=== PATIENT | female | born 1995 | race Two or more races ===

== ENCOUNTER 2018-06-25 23:26 | Emergency (ER) | payer SELFPAY ==
[2018-06-26 01:09] LABS: ABS Basophils 0 10^3/ul (0-0.2); ABS Eosinophils 0 10^3/ul (0-0.6); ABS Lymphocytes 0.8 10^3/ul (1.0-4.8); ABS Monocytes 0.1 10^3/ul (0-0.8); ABS Neutrophils 1.2 10^3/ul (1.5-7.7); ABS Nucleated RBC 0 10^3/ul; Eosinophil % 0.1 %; Hematocrit 32 % (33-41); Hemoglobin 10.6 g/dL (12.0-16.0); Mean Corpuscular HGB Conc 33 g/dL (31-36); Mean Corpuscular Hemoglobin 29 pg (27-31); Mean Corpuscular Volume 88 fL (80-97); Mean Platelet Volume 8.6 fL (7.4-10.4); Nucleated Red Blood Cells % 0; Platelet Count 213 10^3/uL (150-450); Red Blood Count 3.63 10^6 /uL (3.70-4.87); Red Cell Distribution Width 13 % (10.5-15); White Blood Count 2.1 10^3/uL (3.5-10.8)
[2018-06-26 01:10] LABS: ALT 50 U/L (7-52); AST 61 U/L (13-39); Albumin 3.8 g/dL (3.2-5.2); Albumin/Globulin Ratio 1.1 (1-3); Alkaline Phosphatase 56 U/L (34-104); Anion Gap 9 mmol/L (2-11); BUN/Creatinine Ratio 13.3 (8-20); Blood Urea Nitrogen 10 mg/dL (6-24); CO2 Carbon Dioxide 23 mmol/L (22-32); Calcium 8.3 mg/dL (8.6-10.3); Chloride 104 mmol/L (101-111); EGFR African American 116.9 (>60); EGFR Non-African American 96.6 (>60); Globulin 3.5 g/dL (2-4); Glucose 128 mg/dL (70-100); Sodium 136 mmol/L (135-145); Total Protein 7.3 g/dL (6.4-8.9)
[2018-06-26] MEDS ORDERED: NS 0.9% 1000 ML** 1,000 ML IV ONE (01:20)
[2018-06-26] MEDS ORDERED: Acetaminophen TAB* 325 MG PO ONE (01:20)
[2018-06-26] MEDS ORDERED: Iohexol 300* (CONTRAST) 10 ML SDV IV ONE (01:33)
--- NOTE | 2018-06-26 01:35 | ED ---
HPI Febrile Illness - HPI Summary HPI Summary: The patient is a 23 year old female who is presenting to the [facility] with a chief complaint of fever. The patient states that she has had [place] for the past 3 weeks. Her fever has reached 102 F at one point during the duration. Medication aside from ibuprofen has not been taken. Patient denies sore throat. Abd pain and [place] are reported. Abd pain is intermittent. Patient describes her ibuprofen usage as every 6 hours and she had increased from 400 mg to 600. Last dose of Advil was also stated to be taken at 2300. As per triage report, the patient reports of [place] on the right side. The symptoms are alleviated by nothing. Symptoms are aggravated by nothing. The pain is rated as 5/10 in severity. Patient also denies N/V. - History of Current Complaint Chief Complaint: EDFever Time Seen by Provider: 06/26/18 01:02 Hx Obtained From: Patient Onset/Duration: Started Weeks Ago - 3 weeks Timing: Constant Initial Severity: Moderate Current Severity: Moderate Pain Intensity: 5 Pain Scale Used: 0-10 Numeric Associated Signs and Symptoms: Headache, Other: - Abd pain (intermittent) - Allergy/Home Medications Allergies/Adverse Reactions: Allergies Allergy/AdvReac Type Severity Reaction Status Date / Time amoxicillin [From Augmentin] Allergy Swelling Verified 06/25/18 23:46 cefadroxil [From Duricef] Allergy Swelling Verified 06/25/18 23:46 clavulanic acid Allergy Swelling Verified 06/25/18 23:46 [From Augmentin] Penicillins Allergy Stomach Verified 06/25/18 23:44 Cramps Home Medications: Home Medications Ibuprofen TAB* [Motrin TAB* 600 MG] 600 mg PO Q6H PRN 06/25/18 [History Confirmed 06/25/18] PMH/Surg Hx/FS Hx/Imm Hx Endocrine/Hematology History: Denies: Hx Diabetes Cardiovascular History: Denies: Hx Hypertension History: Denies: Hx Renal Disease Sensory History: Denies: Hx Deafness Opthamlomology History: Denies: Hx Legally Blind EENT History: Denies: Hx Deafness Infectious Disease History: No Infectious Disease History: Reports: Traveled Outside the [place] in Last 30 Days - Family History Known Family History: Positive: Non-Contributory Family History: FHx Reviewed and noncontributory - Social History Occupation: Student Lives: Dormitory/Roommates Substance Use Type: Reports: None Hx Tobacco Use: No Review of Systems Positive: Fever - 102 F Eyes: Negative Negative: Sore Throat Cardiovascular: Negative Respiratory: Negative Positive: Abdominal Pain - intermittent. Negative: Vomiting, Nausea Genitourinary: Negative Musculoskeletal: Negative Skin: Negative Positive: Headache Psychological: Normal All Other Systems Reviewed And Are Negative: Yes Physical Exam - Summary Physical Exam Summary: VITAL SIGNS: Reviewed. GENERAL: Patient is a well-developed and nourished (FEMALE) who is lying comfortable in the stretcher. Patient is not in any acute respiratory distress. HEAD AND FACE: No signs of trauma. No ecchymosis, hematomas or skull depressions. No sinus tenderness. EYES: PERRLA, EOMI x 2, No injected conjunctiva, no nystagmus. EARS: Hearing grossly intact. Ear canals and tympanic membranes are within normal limits. MOUTH: Oropharynx within normal limits. NECK: Supple, trachea is midline, no adenopathy, no JVD, no carotid bruit, no c- spine tenderness, neck with full ROM. No meningeal signs. CHEST: Symmetric, no tenderness at palpation LUNGS: Clear to auscultation bilaterally. No wheezing or crackles. CVS: Regular rate and rhythm, S1 and S2 present, no murmurs or gallops appreciated. ABDOMEN: LEFT UPPER QUADRANT MILD TENDERNESS. No signs of distention. No rebound no guarding, and no masses palpated. Bowel sounds are normal. EXTREMITIES: FROM in all major joints, no edema, no cyanosis or clubbing. NEURO: Alert and oriented x 3. No acute neurological deficits. Speech is normal and follows commands. SKIN: Dry and warm Triage Information Reviewed: Yes Vital Signs On Initial Exam: Initial Vitals Temp Pulse Resp BP Pulse Ox 101.6 F 110 14 127/77 97 06/25/18 23:39 06/25/18 23:39 06/25/18 23:39 06/25/18 23:39 06/25/18 23:39 Vital Signs Reviewed: Yes Diagnostics - Vital Signs Vital Signs Temp Pulse Resp BP Pulse Ox 06/25/18 23:39 101.6 F 110 14 127/77 97 - Laboratory Lab Results: Lab Results 06/26/18 06/26/18 Range/Units 00:26 00:26 WBC 2.1 L (3.5-10.8) 10^3/uL RBC 3.63 L (3.70-4.87) 10^6 /uL Hgb 10.6 L (12.0-16.0) g/dL Hct 32 L (33-41) % MCV 88 (80-97) fL MCH 29 (27-31) pg MCHC 33 (31-36) g/dL RDW 13 (10.5-15) % Plt Count 213 (150-450) 10^3/uL MPV 8.6 (7.4-10.4) fL Neut % (Auto) 58.4 % Lymph % (Auto) 36.0 % [place] % (Auto) 5.2 % Eos % (Auto) 0.1 % Baso % (Auto) 0.3 % Absolute Neuts (auto) 1.2 L (1.5-7.7) 10^3/ul Absolute Lymphs (auto) 0.8 L (1.0-4.8) 10^3/ul Absolute Monos (auto) 0.1 (0-0.8) 10^3/ul Absolute Eos (auto) 0 (0-0.6) 10^3/ul Absolute Basos (auto) 0 (0-0.2) 10^3/ul Absolute Nucleated RBC 0 10^3/ul Nucleated RBC % 0 Sodium 136 (135-145) mmol/L Potassium 4.0 (3.5-5.0) mmol/L Chloride 104 (101-111) mmol/L Carbon Dioxide 23 (22-32) mmol/L Anion Gap 9 (2-11) mmol/L BUN 10 (6-24) mg/dL Creatinine 0.75 (0.51-0.95) mg/dL Est GFR ( Amer) 116.9 (>60) Est GFR (Non-Af Amer) 96.6 (>60) BUN/Creatinine Ratio 13.3 (8-20) Glucose 128 H (70-100) mg/dL Calcium 8.3 L (8.6-10.3) mg/dL Total Bilirubin 0.40 (0.2-1.0) mg/dL AST 61 H (13-39) U/L ALT 50 (7-52) U/L Alkaline Phosphatase 56 (34-104) U/L Total Protein 7.3 (6.4-8.9) g/dL Albumin 3.8 (3.2-5.2) g/dL Globulin 3.5 (2-4) g/dL Albumin/Globulin Ratio 1.1 (1-3) Result Diagrams: 06/26/18 00:26 06/26/18 00:26 Lab Statement: Any lab studies that have been ordered have been reviewed, and results considered in the medical decision making process. - CT Chest/Abd/Pel CT CT Interpretation Completed By: Radiologist Summary of CT Findings: CT Chest as per radiologist reveals negative CT Chest. No filtrates and no central pulmonary embolism is identified. The ED Physician has reviewed this radiology report. CT A/P as per radiologist reveals 1. Borderline hepatomegaly with no splenomegaly. 2. Slight pericholecystic fluid or wall edema along liver interface and slight periportal edema of the liver which is nonspecific but may be seen with hepatitis. 3.collapsed stomach with question of slight perigastric induration which may reflect gastritis. 4.Borderline periaortic retroperitoneal nodes which are nonspecific. The ED Physician has reviewed this radiology report. Course/Dx - Course Course Of Treatment: The patient is a 23 year old female who is presenting to the [facility] with a chief complaint of fever. We reviewed her blood work and lab results in the [facility]. CT Chest, and Ct A/P were done in the [facility]. Upon reviewing findings. Upon reviewing all the findings, there are no obvious reason for the patients fever. CT A/P is negative. The option was given to the family after discussion of the lab results and imaging results with the family, that they may either choose to admit the patient to the [facility] or be discharged home and follow up with infectious disease specialist today. The patient and her family agreed to the discharge plan and will follow up with Dr. Ambrose today. The patient will be discharged home with a dx of fever. - Diagnoses Provider Diagnoses: Fever Discharge - Sign-Out/Discharge Documenting (check all that apply): Patient Departure - Discharge Home Patient Received Moderate/Deep Sedation with Procedure: No - Discharge Plan Condition: Stable Disposition: HOME Patient Education Materials: Fever in Adults (ED) Referrals: Ivory Gallego, [facility] [Primary Care Provider] - Isauro ROSADO,Peter Cervantes [Medical Doctor] - Additional Instructions: FOLLOW UP WITH DR. Ambrose Today (Infectious Disease specialist). RETURN TO THE EMERGENCY DEPARTMENT FOR CHANGING OR WORSENING SYMPTOMS. - Attestation Statements Document Initiated by Scribe: Yes Documenting Scribe: Jeffery Billings Provider For Whom Scribe is Documenting (Include Credential): Dr. Adrienne Malagon Scribe Attestation: IJeffery, scribed for Dr. Adrienne Malagon on 06/26/18 at 0513. Status of Scribe Document: Ready
[2018-06-26 01:55] LABS: C Reactive Protein 12.11 mg/L (<8.01)
[2018-06-26 02:03] LABS: HCG Pregnancy < 0.60 mIU/mL
[2018-06-26 03:18] LABS: Rapid Strep Molecular Negative (Negative)
[2018-06-26 04:01] LABS: Urine Appearance Clear; Urine Bilirubin Negative (Negative); Urine Blood Negative (Negative); Urine Color Straw; Urine Glucose Negative (Negative); Urine Ketones Negative (Negative); Urine Nitrite Negative (Negative); Urine Protein Negative (Negative); Urine Specific Gravity 1.034 (1.010-1.030); Urine Urobilinogen Negative (Negative)
[2018-06-26 05:11] VITALS: BP 98/60
[2018-06-26 09:54] LABS: Influenza A Molecular NEGATIVE (Negative); Influenza B Molecular NEGATIVE (Negative)
== END 2018-06-26 05:20 | disposition home or self-care (01) ==
LOC: ED 23:26
DX: R50.9 Fever, unspecified (principal); R94.8 Abnormal results of function studies of other organs and systems; Z88.3 Allergy status to other anti-infective agents; Z88.0 Allergy status to penicillin
CPT/HCPCS: 36415; 71260; 74177; 80053; 81003; 84702; 85025; 86140; 86308; 87040; 87651; 96360; 96361; 99283; A9270-GY; Q9967

== ENCOUNTER 2018-06-27 21:37 | Emergency (ER) | payer SELFPAY ==
[2018-06-28] MEDS ORDERED: Acetaminophen TAB* 325 MG PO ONE (02:38)
--- NOTE | 2018-06-28 02:43 | ED ---
HPI Febrile Illness - HPI Summary HPI Summary: The patient is a 23 y/o F presenting to [facility] with a chief complaint of ongoing febrile illness since June 05, 2018. Her symptoms started with fatigue and lightheadedness with sitting down. She then developed fevers and was diagnosed with mono on June 10. Her fevers have continued to get worse, and she has also experienced nausea, vomiting, diarrhea, diffuse intermittent abd pain, headaches, weight loss with decreased appetite, and mild coughing. She denies sore throat and rash. She visited [facility], but there is not concern for disease during trip because she was sick prior. No other medical conditions. LNMP: June 15. - History of Current Complaint Chief Complaint: EDFever Time Seen by Provider: 06/28/18 02:26 Hx Obtained From: Patient Onset/Duration: Started Weeks Ago - late May, Still Present Timing: Lasting Weeks Initial Severity: Moderate Current Severity: Moderate Pain Intensity: 2 Pain Scale Used: 0-10 Numeric Aggravating Factors: Nothing Alleviating Factors: Nothing Associated Signs and Symptoms: Cough - mild, Diarrhea, Headache, Nausea, Other: - POSITIVE: lightheaded, fatigue, weight loss, decreased appetite, intermittent abd pain; NEGATIVE: sore throat, rash - Allergy/Home Medications Allergies/Adverse Reactions: Allergies Allergy/AdvReac Type Severity Reaction Status Date / Time amoxicillin [From Augmentin] Allergy Swelling Verified 06/27/18 22:02 cefadroxil [From Duricef] Allergy Swelling Verified 06/27/18 22:02 clavulanic acid Allergy Swelling Verified 06/27/18 22:02 [From Augmentin] Penicillins Allergy Stomach Verified 06/27/18 22:02 Cramps Home Medications: Home Medications Acetaminophen TAB* [Tylenol TAB*] 650 mg PO Q6H PRN 06/27/18 [History Confirmed 06/27/18] PMH/Surg Hx/FS Hx/Imm Hx Endocrine/Hematology History: Denies: Hx Diabetes Cardiovascular History: Denies: Hx Hypertension History: Denies: Hx Renal Disease Sensory History: Denies: Hx Legally Blind, Hx Deafness Opthamlomology History: Denies: Hx Legally Blind - Surgical History Surgery Procedure, Year, and Place: none Infectious Disease History: No Infectious Disease History: Reports: Traveled Outside the [place] in Last 30 Days - [facility], returned 06/21 - Family History Known Family History: Positive: Non-Contributory Family History: FHx Reviewed and noncontributory - Social History Occupation: Student Alcohol Use: Rare Hx Substance Use: No Substance Use Type: Reports: None Hx Tobacco Use: No Smoking Status (MU): Never Smoked Tobacco Review of Systems Positive: Fever, Fatigue, Other - lightheaded Negative: Sore Throat Positive: Cough - mild Positive: Abdominal Pain - intermittent diffuse, Vomiting, Diarrhea, Nausea, Other - weight loss due to decreased appetite Negative: Rash Positive: Headache All Other Systems Reviewed And Are Negative: Yes Physical Exam - Summary Physical Exam Summary: Appearance: Well-appearing, Well-nourished, lying in bed comfortably, vital signs reveal fever Skin: Warm, dry, no obvious rash Eyes: sclera anicteric, no conjunctival pallor ENT: mucous membranes moist, pharynx appears normal Neck: Supple, nontender Respiratory: Clear to auscultation, no signs of respiratory distress Cardiovascular: Normal S1, S2. No murmurs. Normal distal pulses in tibial and radial bilaterally. Abdomen: Soft, nontender, normal active bowel sounds present Musculoskeletal: Normal, Strength/ROM Intact Neurological: A&Ox3, awake and alert, mentation is normal, speech is fluent and appropriate Psychiatric: affect is normal, does not appear anxious or depressed Triage Information Reviewed: Yes Vital Signs On Initial Exam: Initial Vitals Temp Pulse Resp BP Pulse Ox 100.4 F 105 16 104/70 97 06/27/18 21:55 06/27/18 21:55 06/27/18 21:55 06/27/18 21:55 06/27/18 21:55 Vital Signs Reviewed: Yes Diagnostics - Vital Signs Vital Signs Temp Pulse Resp BP Pulse Ox 06/28/18 02:30 101.6 F 94 20 96 06/28/18 01:04 102.1 F 108 20 133/71 98 06/27/18 21:55 100.4 F 105 16 104/70 97 - Laboratory Result Diagrams: 06/28/18 03:13 06/28/18 03:13 Lab Statement: Any lab studies that have been ordered have been reviewed, and results considered in the medical decision making process. Re-Evaluation - Re-Evaluation First Eval Re-Evaluation Time: 03:55 Change: Improved Comment: Fever has improved slightly. We discussed discharge with follow up with specialist. Course/Dx - Course Course Of Treatment: The patient is a 23 y/o F with a chief complaint of ongoing febrile illness since June 05, 2018. She was diagnosed with mono on June 10 after developing fever and fatigue. Worsening fevers have been accompanied by nausea, vomiting, diarrhea, diffuse intermittent abd pain, headaches, weight loss with decreased appetite, and mild coughing. She denies sore throat and rash. Upon physical exam, the patient exhibits a fever. In the ED course, the patient was administered Tylenol. Blood work reveals elevated glucose, AST, ALT and depressed WBCs, RBCs, hgb, hct, plt count, abs lymphs. UA is normal. She is diagnosed with fever. She will be discharged home with follow up with PCP for follow up with specialist in 2-3 days. She is given instructions on potential reasons for increased fever. She agrees with this plan and understands need for return to the ED for any new or worsening symptoms. - Diagnoses Provider Diagnoses: Fever of unknown origin Discharge - Sign-Out/Discharge Documenting (check all that apply): Patient Departure - Patient will be discharged home. Patient Received Moderate/Deep Sedation with Procedure: No - Discharge Plan Condition: Good Disposition: HOME Patient Education Materials: Fever in Adults (ED) Referrals: Ivory Gallego [employer] [Primary Care Provider] - 3 Days Additional Instructions: The exact cause of the fever is still unclear as all the tests have been negative, other than some very mild elevations in liver enzyme tests, and slightly depressed white blood cell count. None of this is dangerous but may provide clues to a specialist to make a diagnosis. You are stable and it is ok for you to travel to [place] to be evaluated there further. - Billing Disposition and Condition Condition: GOOD Disposition: Home - Attestation Statements Document Initiated by Sophia: Yes Documenting Scribe: Katherine aCi Provider For Whom Sophia is Documenting (Include Credential): MD Sophia Ross Attestation: Katherine Beckman scribed for Dr. Parth Reyes MD on 06/28/18 at 0700. Scribe Documentation Reviewed: Yes Provider Attestation: The documentation as recorded by the Katherine alfred accurately reflects the service I personally performed and the decisions made by me, Dr. Parth Reyes MD Status of Scribe Document: Viewed
[2018-06-28 02:49] LABS: Urine Appearance Clear; Urine Bilirubin Negative (Negative); Urine Blood Negative (Negative); Urine Color Straw; Urine Glucose Negative (Negative); Urine Ketones Negative (Negative); Urine Nitrite Negative (Negative); Urine Protein Negative (Negative); Urine Specific Gravity 1.006 (1.010-1.030); Urine Urobilinogen Negative (Negative)
[2018-06-28 03:38] LABS: ABS Basophils 0 10^3/ul (0-0.2); ABS Eosinophils 0 10^3/ul (0-0.6); ABS Lymphocytes 0.9 10^3/ul (1.0-4.8); ABS Monocytes 0.2 10^3/ul (0-0.8); ABS Neutrophils 2.2 10^3/ul (1.5-7.7); ABS Nucleated RBC 0 10^3/ul; Eosinophil % 0.1 %; Hematocrit 30 % (33-41); Lymphocyte % 26.4 %; Mean Corpuscular HGB Conc 33 g/dL (31-36); Mean Corpuscular Hemoglobin 29 pg (27-31); Mean Corpuscular Volume 87 fL (80-97); Mean Platelet Volume 8.9 fL (7.4-10.4); Nucleated Red Blood Cells % 0.1; Platelet Count 149 10^3/uL (150-450); Red Blood Count 3.44 10^6 /uL (3.70-4.87); Red Cell Distribution Width 13 % (10.5-15); White Blood Count 3.3 10^3/uL (3.5-10.8)
[2018-06-28 03:50] LABS: Albumin 3.8 g/dL (3.2-5.2); Albumin/Globulin Ratio 1.2 (1-3); BUN/Creatinine Ratio 15.4 (8-20); Calcium 8.6 mg/dL (8.6-10.3); EGFR African American 178.4 (>60); EGFR Non-African American 147.5 (>60); Globulin 3.3 g/dL (2-4); Potassium 3.8 mmol/L (3.5-5.0); Total Bilirubin 0.5 mg/dL (0.2-1.0); Total Protein 7.1 g/dL (6.4-8.9)
[2018-06-28 04:26] VITALS: BP 121/64
== END 2018-06-28 04:25 | disposition home or self-care (01) ==
LOC: ED 21:37
DX: R50.9 Fever, unspecified (principal); R05 Cough; R19.7 Diarrhea, unspecified; R51 Headache; R11.0 Nausea; R53.83 Other fatigue; Z88.0 Allergy status to penicillin
CPT/HCPCS: 36415; 80053; 81003; 85025; 87040; 99282